=== PATIENT | female | born 1985 | race Caucasian/White ===

== ENCOUNTER → 2017-10-27 | Outpatient (CLI) | payer BC ==
[~2017-10-27] MED LIST: FUROSEMIDE 40 MG/4 ML VIAL ONE
== END ==
LOC: FIMAGING 11:06
PROVIDERS: ATTEND Specialist
DX: R10.10 Upper abdominal pain, unspecified (principal); N13.30 Unspecified hydronephrosis
CPT/HCPCS: 78708; A9562; J1940